=== PATIENT | male | born 1980 | race Caucasian/White ===

== ENCOUNTER 2019-07-15 17:25 | Observation (INO) ==
[2019-07-15] MEDS ORDERED: IOPAMIDOL 100 ML BOTTLE IV ONE (17:26)
[2019-07-15] MEDS ORDERED: HYDROmorphone 2 MG/ML VIAL IV PRN (17:41)
[2019-07-15] MEDS ORDERED: KETOROLAC 30 MG/ML VIAL IV ONE (17:41)
[2019-07-15] MEDS ORDERED: 0.9 % SODIUM CHLORIDE 2,000 ML IV ONE (17:41)
[2019-07-15] MEDS ORDERED: ONDANSETRON 4 MG/2 ML VIAL IV ONE (17:41)
--- NOTE | 2019-07-15 17:46 | Emergency Department Note ---
Abdominal Pain HPI - General Chief Complaint: Abdominal Pain Stated Complaint: lower abdominal pain Time Seen by Provider: 07/15/19 17:32 Source: patient Mode of arrival: ambulatory Limitations: no limitations - History of Present Illness HPI Narrative: 39-year-old male with periumbilical pain that started 2 and half hours prior to arrival. Does not seem to be related to food. He is able to urinate without difficulty. Last bowel movement was this morning and normal. He does have pain medicine at home oxycodone which she takes as needed for chronic back pain. However this pain is different. He has not taken any medicine for this yet. He does note a little bit of nausea but no fever shortness of breath or other concerning feature. He does not know what triggered this acute onset pain. 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 - Related Data Home Medications Medication Instructions Recorded Confirmed fish,flax,primrose,borag 1 cap PO QDAY cap 04/07/16 06/06/19 oils-om3,6,9 no5 400 mg-400 mg-200 mg capsule ascorbic acid (vitamin C) 2,000 mg PO QDAY 07/19/16 06/06/19 Previous Rx's Medication Instructions Recorded cholecalciferol (vitamin D3) 5,000 5,000 unit PO QDAY #90 cap 10/10/17 unit capsule zinc gluconate 100 mg tablet 100 mg PO QDAY #90 tab 10/10/17 pregabalin 75 mg capsule 75 mg PO BID #60 cap 10/11/17 Cyclobenzaprine [Flexeril] 10 mg PO TID PRN #30 tab 01/09/18 Etodolac [Lodine] 400 mg PO BID #20 tab 01/09/18 sulfamethoxazole 800 1 tab PO BID #14 tab 05/10/18 mg-trimethoprim 160 mg tablet atorvastatin 20 mg tablet 20 mg PO QDAY #90 tab 05/15/18 sumatriptan succinate 50 mg tablet 50 mg PO Q2H PRN #14 tab 05/21/18 escitalopram oxalate 20 mg tablet 20 mg PO QDAY #90 tab 10/15/18 fludrocortisone 0.1 mg tablet 0.1 mg PO BID #180 tab 11/13/18 itraconazole 100 mg capsule 200 mg PO BID #28 cap 06/04/19 oxycodone 5 mg tablet 5 mg PO .Q6-8HP PRN #112 tab 06/17/19 Allergies Allergy/AdvReac Type Severity Reaction Status Date / Time cephalexin Allergy Unknown Unknown Verified 06/06/19 14:56 Review of Systems All systems ED: reviewed and negative except as stated. Abdominal Pain PMH - Past Medical History Attestation: Yes: The following information was validated with the patient. [facility] Narrative: Family History (Last Reviewed 11/21/18 @ 16:47 by Marques Palacio DO) Mother Arthritis Skin cancer Grandmother Skin cancer Father Arthritis Hypertension, essential Heart disease Grandfather Heart attack Grandfather Heart attack Medical History (Last Reviewed 11/21/18 @ 16:47 by Marques aPlacio DO) History of fracture of radius (Chronic) History of acne (Chronic) Headache (Chronic) Major depressive disorder, single episode, moderate (Chronic) Analgesic use (Chronic) Thoracic disc disease (Chronic) Exposure to STD (Chronic) Low back pain (Chronic) Common migraine (Chronic) History of skin cancer (Chronic) Nevus (Chronic) Lentigo (Chronic) Tinea versicolor (Chronic) Tobacco use (Chronic) Fibromyalgia (Acute) Decreased range of motion (Chronic) History of head injury (Chronic) Chest pain (Chronic) Skin cancer (Chronic) Left knee pain (Chronic) Hip pain (Chronic) Neck pain (Chronic) Back pain (Chronic) Arthritis (Chronic) Chronic pain (Chronic) Fracture of right radius (Chronic) Acne (Chronic) Generalized headaches (Chronic) Major depressive disorder, single episode (Chronic) Current drug use (Chronic) Cervicalgia (Chronic) Thoracic disc disease (Chronic) MARTHA positive (Acute) Multiple joint pain (Chronic) Past Surgical History (Last Reviewed 11/21/18 @ 16:47 by Marques Palacio DO) No pertinent past surgical history (Chronic) Medical history: Reports: migraine, other (Chronic back pain) - Social History Smoking status: Former smoker Alcohol use: Reports: Unknown Drug use: Reports: none Physical Exam No acute distress. Normocephalic atraumatic. Conjunctive are clear sclerae white nonicteric. No nasal discharge or congestion. Oropharynx pink and moist. Posterior pharynx clear. Neck is supple without lymphadenopathy thyromegaly or carotid bruit. Heart is regular rate and rhythm no murmur appreciated. Lungs clear to auscultation bilaterally without wheezes rales rhonchi or respiratory distress. Abdomen is soft nontender nondistended except for the periumbilical area which isNo acute distress. Normocephalic atraumatic. Conjunctive are clear sclerae white nonicteric. No nasal discharge or congestion. Oropharynx pink and moist. Posterior pharynx clear. Neck is supple without lymphadenopathy thyromegaly or carotid bruit. Heart is regular rate and rhythm no murmur appreciated. Lungs clear to auscultation bilaterally without wheezes rales rhonchi or respiratory distress. Abdomen is soft nontender nondistended except for the periumbilical area which is markedly tender. No rebound tenderness peritoneal signs or guarding. No pedal edema. Alert oriented Limitations: no limitations Course Vital Signs Temperature 97.5 F 07/15/19 17:28 Pulse Rate 88 07/15/19 17:28 Respiratory Rate 18 07/15/19 17:28 Blood Pressure 131/88 07/15/19 17:28 Pulse Oximetry (%) 100 07/15/19 17:28 Temperature 97.5 F 07/15/19 17:28 Pulse Rate 78 07/15/19 19:31 Respiratory Rate 18 07/15/19 17:28 Blood Pressure 135/86 07/15/19 19:31 Pulse Oximetry (%) 99 07/15/19 19:31 Abdominal Pain - Lab Data Lab results reviewed: Yes I reviewed the patient's lab results. Result diagrams: 07/15/19 17:45 07/15/19 17:45 Lab Results 07/15/19 07/15/19 07/15/19 Range/Units 17:45 17:45 17:45 WBC 18.9 H (4.5-11.0) K/mcL RBC 5.09 (4.50-5.90) M/mcL Hgb 14.9 (13.5-16.5) g/dL Hct 42.9 (41.0-55.0) % POC Hct 44.0 (41.0-55.0) % MCV 84.3 (80.0-100.0) fL MCH 29.4 (26.0-34.0) pg MCHC 34.9 (31.0-36.0) g/dL RDW 12.1 (11.5-14.5) % Plt Count 342 (140-440) K/mcL MPV 7.9 (7.4-10.4) fL Gran % 75.5 (38.0-78.0) % Lymph % (Auto) 18.6 (15.5-49.0) % [place] % (Auto) 5.0 (1.0-12.0) % Eos % (Auto) 0.5 (0.0-7.0) % Baso % (Auto) 0.4 (0.0-2.0) % Gran # 14.3 H (1.8-8.0) K/mcL Lymph # (Auto) 3.5 (1.5-4.8) K/mcL [place] # (Auto) 0.9 (0.1-0.9) K/mcL Eos # (Auto) 0.1 (0.0-0.7) K/mcL Baso # (Auto) 0.1 (0.0-0.3) K/mcL VBG Lactic Acid 2.1 H (0.5-2.0) mmol/L POC Sodium 139 (133-145) mmol/L Sodium 136 (133-145) mmol/L POC Potassium 3.5 (3.3-5.1) mmol/L Potassium 3.5 (3.3-5.1) mmol/L POC Chloride 105 (96-108) mmol/L Chloride 100 (96-108) mmol/L Carbon Dioxide 22 (22-30) mmol/L POC Total CO2 23 (22-30) mmol/L Anion Gap 14.0 (8-16) POC BUN 12 (6-20) mg/dl BUN 12 (6-20) mg/dl Creatinine 0.9 (0.7-1.2) mg/dl POC Creatinine 0.8 (0.7-1.2) mg/dl GFR Calculation 109 Glucose 91 (70-105) mg/dL POC Glucose 92 (70-105) mg/dL Calcium 9.9 (8.6-10.4) mg/dl POC WB Ioniz Calcium 1.14 L (1.16-1.32) mmol/L Total Bilirubin 0.3 (0.0-1.0) mg/dL AST 20 (0-37) U/l ALT 27 (0-40) U/l Alkaline Phosphatase 52 (39-117) U/L Total Protein 7.7 (5.9-8.4) gm/dL Albumin 5.0 (3.2-5.2) gm/dL Globulin 2.7 (2.2-3.7) gm/dL Albumin/Globulin Ratio 1.9 (1.0-2.3) Lipase 27 (7-60) U/L Urine Color Urine Appearance Urine pH (5.0-9.0) Ur Specific [place] (1.000-1.035) Urine Protein (NEG) mg/dL Urine Glucose (UA) (NEG) mg/dL Urine Ketones (NEG) mg/dL Urine Occult Blood (<0.03) mg/dL Urine Nitrate (NEG) Urine Bilirubin (NEG) mg/dL Urine Urobilinogen (NEG) mg/dL Ur Leukocyte Esterase (NEG) /uL Urine RBC (0-1) /hpf Urine WBC (0-4) /hpf Ur Squamous Epith Cells (0-4) /hpf Urine Bacteria (0) /hpf Urine Mucus (0) /hpf Ur Culture Indicated? 07/15/19 Range/Units 17:46 WBC (4.5-11.0) K/mcL RBC (4.50-5.90) M/mcL Hgb (13.5-16.5) g/dL Hct (41.0-55.0) % POC Hct (41.0-55.0) % MCV (80.0-100.0) fL MCH (26.0-34.0) pg MCHC (31.0-36.0) g/dL RDW (11.5-14.5) % Plt Count (140-440) K/mcL MPV (7.4-10.4) fL Gran % (38.0-78.0) % Lymph % (Auto) (15.5-49.0) % [place] % (Auto) (1.0-12.0) % Eos % (Auto) (0.0-7.0) % Baso % (Auto) (0.0-2.0) % Gran # (1.8-8.0) K/mcL Lymph # (Auto) (1.5-4.8) K/mcL [place] # (Auto) (0.1-0.9) K/mcL Eos # (Auto) (0.0-0.7) K/mcL Baso # (Auto) (0.0-0.3) K/mcL VBG Lactic Acid (0.5-2.0) mmol/L POC Sodium (133-145) mmol/L Sodium (133-145) mmol/L POC Potassium (3.3-5.1) mmol/L Potassium (3.3-5.1) mmol/L POC Chloride (96-108) mmol/L Chloride (96-108) mmol/L Carbon Dioxide (22-30) mmol/L POC Total CO2 (22-30) mmol/L Anion Gap (8-16) POC BUN (6-20) mg/dl BUN (6-20) mg/dl Creatinine (0.7-1.2) mg/dl POC Creatinine (0.7-1.2) mg/dl GFR Calculation Glucose (70-105) mg/dL POC Glucose (70-105) mg/dL Calcium (8.6-10.4) mg/dl POC WB Ioniz Calcium (1.16-1.32) mmol/L Total Bilirubin (0.0-1.0) mg/dL AST (0-37) U/l ALT (0-40) U/l Alkaline Phosphatase (39-117) U/L Total Protein (5.9-8.4) gm/dL Albumin (3.2-5.2) gm/dL Globulin (2.2-3.7) gm/dL Albumin/Globulin Ratio (1.0-2.3) Lipase (7-60) U/L Urine Color Straw Urine Appearance Clear Urine pH 7.0 (5.0-9.0) Ur Specific [place] 1.016 (1.000-1.035) Urine Protein Neg (NEG) mg/dL Urine Glucose (UA) Negative (NEG) mg/dL Urine Ketones Neg (NEG) mg/dL Urine Occult Blood 0.03 A (<0.03) mg/dL Urine Nitrate Neg (NEG) Urine Bilirubin Neg (NEG) mg/dL Urine Urobilinogen Neg (NEG) mg/dL Ur Leukocyte Esterase Neg (NEG) /uL Urine RBC 2 H (0-1) /hpf Urine WBC < 1 (0-4) /hpf Ur Squamous Epith Cells 0 (0-4) /hpf Urine Bacteria 0 (0) /hpf Urine Mucus Few (0) /hpf Ur Culture Indicated? No - Radiology Data Radiology results reviewed: Yes I reviewed the patient's radiology results. CT scan of the abdomen pelvis with contrast shows acute appendicitis-measuring almost 12 mm Disposition Pt seen by MANAGER FLORAL/PA only: No Clinical Impression: Acute appendicitis Qualifiers: Acute appendicitis type: unspecified acute appendicitis type Qualified Code(s): K35.80 - Unspecified acute appendicitis Summary: Periumbilical abdominal pain the pancreatitis versus appendicitis versus other intra-abdominal issue. Work-up with laboratory CT scan. Dilaudid and Toradol for pain. Zofran for nausea Laboratory shows leukocytosis at 18.9. CT scan shows acute appendicitis. Started Zosyn. Discussed case with Dr. Chencho Reynaga, general surgeon. He agreed to accept the patient for further care and do possible surgery tomorrow at noon. Instructed me to go ahead admit the patient to him and so I wrote transition orders. He will see the patient in the morning. We will treat his pain with morphine, nausea with Zofran, give IV fluids and continue Zosyn every 6 hours. I discussed the findings with the patient. Took the time to answer his questions Disposition: Xfer As Inpt ([facility] Condition: Good Referrals: Marques Palacio DO [Primary Care Provider] - Chencho Reynaga MD [Physician] -
[2019-07-15 17:58] LABS: POC Blood Urea Nitrogen 12 mg/dl (6-20); POC CO2 23 mmol/L (22-30); POC Calcium, Ionized 1.14 mmol/L (1.16-1.32); POC Chloride 105 mmol/L (96-108); POC Creatinine 0.8 mg/dl (0.7-1.2); POC Glucose, Random 92 mg/dL (70-105); POC Potassium 3.5 mmol/L (3.3-5.1); POC Sodium 139 mmol/L (133-145)
[2019-07-15 18:31] LABS: Basophils # (Auto) 0.1 K/mcL (0.0-0.3); Basophils % (Auto) 0.4 % (0.0-2.0); Eosinophils # (Auto) 0.1 K/mcL (0.0-0.7); Eosinophils % (Auto) 0.5 % (0.0-7.0); Granulocytes % (Auto) 75.5 % (38.0-78.0); Hematocrit 42.9 % (41.0-55.0); Hemoglobin 14.9 g/dL (13.5-16.5); Lymphocytes # (Auto) 3.5 K/mcL (1.5-4.8); Lymphocytes % (Auto) 18.6 % (15.5-49.0); Mean Cell Volume 84.3 fL (80.0-100.0); Mean Corpuscular HGB Conc 34.9 g/dL (31.0-36.0); Mean Platelet Volume 7.9 fL (7.4-10.4); Monocytes # (Auto) 0.9 K/mcL (0.1-0.9); Platelet Count 342 K/mcL (140-440); RBC 5.09 M/mcL (4.50-5.90); Red Cell Distribution Width 12.1 % (11.5-14.5); WBC 18.9 K/mcL (4.5-11.0)
[2019-07-15 18:43] LABS: Appearance,Urine CLEAR; Bacteria,Urine 0 /hpf (0); Bilirubin,Urine NEG (NEG); Color,Urine STRAW; Culture Indicated,Urine NO; Glucose,Urine (UA) NEGATIVE (NEG); Ketones,Urine NEG (NEG); Leukocyte Esterase,Urine NEG /uL (NEG); Mucus,Urine FEW /hpf (0); Nitrate,Urine NEG (NEG); Protein,Urine NEG (NEG); Specific Gravity,Urine 1.016 (1.000-1.035); Urine Blood 0.03 mg/dL (<0.03); Urine RBC 2 /hpf (0-1); Urine Squamous Epithelial Cell 0 /hpf (0-4); Urine WBC < 1 /hpf (0-4); Urobilinogen,Urine NEG (NEG)
[2019-07-15 18:50] LABS: ALT/SGPT 27 U/l (0-40); AST/SGOT 20 U/l (0-37); Albumin/Globulin Ratio 1.9 (1.0-2.3); Alkaline Phosphatase 52 U/L (39-117); Bilirubin,Total 0.3 mg/dL (0.0-1.0); Blood Urea Nitrogen 12 mg/dl (6-20); Calcium 9.9 mg/dl (8.6-10.4); Carbon Dioxide 22 mmol/L (22-30); Chloride 100 mmol/L (96-108); Globulin 2.7 gm/dL (2.2-3.7); Glomerular Filtration Rate 109; Glucose 91 mg/dL (70-105)
[2019-07-15] MEDS ORDERED: ESOMEPRAZOLE 40 MG VIAL IV ONE (19:19)
--- NOTE | 2019-07-15 19:28 | Cat Scan Report ---
CLINICAL INFORMATION: Periumbilical pain COMPARISON: None. TECHNIQUE: Axial images were obtained through the abdomen and pelvis. Sagittally and coronally reformatted images. A mL Isovue 370 injected intravenously. Oral contrast material was given FINDINGS: Lung bases:Negative. No parenchymal infiltrate or mass. No pleural fluid. No pericardial fluid. There is mild cardiomegaly. Liver:Negative. No intrahepatic abnormality. Liver contour is smooth. There is no ascites Gallbladder, billary:No calcified gallstones. No gallbladder wall thickening. No dilated bile ducts. Common bile duct measures 4 mm Spleen:Negative. No splenomegaly. Normal enhancement of the splenic and portal veins Pancreas:Negative. No pancreatic mass. No peripancreatic abnormality Adrenal glands:Negative Kidneys, ureters, bladder:Negative kidneys. No solid or cystic mass. There is no hydronephrosis. No renal calculi. There is no hydroureter. No ureteral stone. No bladder calculi. Gastrointestinal:Negative colon. No diverticulosis or diverticulitis. No colonic mass. Small bowel is negative Appendix is abnormal. Appendix is distended and measures 11 mm in length. There is mild periappendiceal inflammatory change. There is a small amount of intraluminal gas of the appendix base. Findings are consistent with early simple appendicitis. No periappendiceal fluid collection. No periappendiceal abscess. There is no appendicolith. No evidence for ruptured appendicitis Vascular:No abdominal aortic aneurysm. No significant vascular calcification Lymphatic:No para-aortic retroperitoneal adenopathy. There is mild right lower quadrant adenopathy. Mesentery, peritoneum:No free intraperitoneal fluid. No intra-abdominal abscess. No pneumoperitoneum. Reproductive:Prostate is not enlarged Musculoskeletal:Normal lumbar spine. Sacrum and pelvis are negative. No anterior abdominal wall or inguinal hernia IMPRESSION: 1. Findings consistent with early simple appendicitis. No CT evidence for ruptured appendicitis 2. Mild right lower quadrant adenopathy The exam was performed using radiation dose optimization techniques including, but not limited to, automated exposure control, adjustment of the mA and/or kV according to patient size and use of iterative reconstruction technique. Interpreted and Authenticated by: Marques Perez 07/15/19
[2019-07-15] MEDS ORDERED: PIPERACILLIN SODIUM/TAZOBACTAM 3.375 GM in DEXTROSE 5% IN WATER 50 ML IV ONE (19:29)
[2019-07-15] MEDS ORDERED: ESOMEPRAZOLE 40 MG VIAL IV SCH (19:30)
[2019-07-15] MEDS ORDERED: ACETAMINOPHEN 325 MG TABLET PO PRN (19:35)
[2019-07-15] MEDS ORDERED: NALOXONE HCL 0.4 MG/ML VIAL IV PRN (19:35)
[2019-07-15] MEDS ORDERED: ONDANSETRON 4 MG/2 ML VIAL IV PRN (19:35)
[2019-07-15] MEDS: FLUDROCORTISONE 0.1 MG TABLET PO SCH (22:15)
[2019-07-15] MEDS: 0.9 % SODIUM CHLORIDE 1,000 ML IV SCH (22:16)
[2019-07-16] MEDS: PIPERACILLIN SODIUM/TAZOBACTAM 3.375 GM in DEXTROSE 5% IN WATER 50 ML IV SCH ×5 (02:24→23:38)
[2019-07-16] MEDS: 0.9 % SODIUM CHLORIDE 1,000 ML IV SCH ×4 (05:40→16:34)
[2019-07-16] MEDS: FLUDROCORTISONE 0.1 MG TABLET PO SCH ×2 (09:35→20:49)
--- NOTE | 2019-07-16 12:48 | General Surg History&Physical ---
History of Present Illness Patient information: Note initiated : 07/16/19 at 12:46 pm Service Date, if different from initiated Date: [] Patient: Royal rebecca Duong 39 y/o M admitted on 07/15/19 for lower abdominal pain. Chief Complaint: [abdominal pain] HPI: Mr. Duong is a 39 year old M admitted with history of severe abdominal pain. Patient had onset of severe abdominal pain about 2 PM yesterday. It increased in severity over the next few hours. He was seen in the emergency room last evening. He denies nausea vomiting. He was noted to have a lactic acid of 2.1 and white blood count of 18.9. CT of the abdomen and pelvis reveals inflamed appendix with mary--Appendiceal tissue edema And thickening of the appendiceal wall. His admitted with appendicitis. Review of Systems All systems PM: reviewed and no additional remarkable complaints except as stated (negative except as noted below) - Constitutional fatigue, headache(s) - Gastrointestinal abdominal pain, bloating - Musculoskeletal arthralgias, back pain, joint swelling, muscle cramps, myalgias, neck pain, stiffness - Neurological restless legs, syncope - Psychiatric depression Past History Past medical history: Ehler Danlos syndrome adrenal insufficiency Past surgical history: No operative procedures Past family history: Coronary artery disease. Hypertension. Inflammatory arthritis Past social history: Occasional tobacco use Denies alcohol use Denies drug use Medications and Allergies Home Medications Medication Instructions Recorded Confirmed Type fish,flax,primrose,borag 1 cap PO QDAY cap 04/07/16 07/16/19 History oils-om3,6,9 no5 400 mg-400 mg-200 mg capsule ascorbic acid (vitamin C) 2,000 mg PO QDAY 07/19/16 07/16/19 History cholecalciferol (vitamin D3) 5,000 5,000 unit PO QDAY #90 cap 10/10/17 07/16/19 Rx unit capsule escitalopram oxalate 20 mg tablet 20 mg PO QDAY #90 tab 10/15/18 07/16/19 Rx fludrocortisone 0.1 mg tablet 0.1 mg PO BID #180 tab 11/13/18 07/16/19 Rx oxycodone 5 mg tablet 5 mg PO .Q6-8HP PRN #112 tab 06/17/19 07/16/19 Rx Allergies Allergy/AdvReac Type Severity Reaction Status Date / Time cephalexin Allergy Unknown Unknown Verified 06/06/19 14:56 Exam Temp Pulse Resp BP Pulse Ox 98.1 F 56 L 18 120/75 95 07/16/19 08:00 07/16/19 08:00 07/16/19 08:00 07/16/19 08:00 07/16/19 08:00 - General physical appearance well developed, well nourished, moderate distress, moderate pain - Eyes PERRL, normal ocular movement - ENT normal pinna, normal nares, normal mucosa, no hearing loss, no congestion - Head Head exam IM: Present: atraumatic, normal inspection, normocephalic - Neck no masses, no bruits, trachea midline, no lymphadenopathy, no venous distension - Cardiovascular Cardiovascular exam IM: Present: normal rate and rhythm - Respiratory normal expansion, normal respiratory effort, clear to percussion, clear to auscultation - Abdomen Abdomen: Present: soft, tender (tenderness to palpation right lower quadrant with guarding), bowel sounds, distended (. Mild lower abdominal distention) Hernia: Present: none - Genitourinary Present: normal penis with no external lesions - Integumentary Present: no rash, no growths, no abnormal pigmentation - Neurologic Present: normal coordination, normal sensation - Musculoskeletal Present: normal gait, normal posture - Psychiatric Present: oriented to time, oriented to person, oriented to place, speech is normal, memory intact Assessment and Plan (1) Acute appendicitis Status: Acute Qualifiers: Acute appendicitis type: unspecified acute appendicitis type Qualified Code(s): K35.80 - Unspecified acute appendicitis (2) Maureen-Danlos syndrome Status: Acute (3) Major depressive disorder, single episode, moderate Status: Chronic
[2019-07-16] MEDS ORDERED: ACETAMINOPHEN 1,000 MG/100 ML BOTTLE IV ONE (12:51)
[2019-07-16] MEDS ORDERED: PHENYLEPHRINE 10 MG/ML VIAL IV ONE (13:35)
[2019-07-16] MEDS ORDERED: LIDOCAINE HCL/PF 100 MG/5 ML SYRINGE IV ONE (13:35)
[2019-07-16] MEDS ORDERED: SUGAMMADEX SODIUM 200 MG/2 ML VIAL IV ONE (13:35)
[2019-07-16] MEDS ORDERED: KETAMINE 100 MG/ML ML IV ONE (13:35)
[2019-07-16] MEDS ORDERED: MIDAZOLAM 2 MG/2 ML VIAL IV ONE (13:35)
[2019-07-16] MEDS ORDERED: ONDANSETRON 4 MG/2 ML VIAL IV ONE (13:35)
[2019-07-16] MEDS ORDERED: DEXAMETHASONE 10 MG/ML VIAL IV ONE (13:35)
[2019-07-16] MEDS ORDERED: ROCURONIUM 10 MG/ML ML IV ONE (13:35)
[2019-07-16] MEDS ORDERED: fentaNYL 100 MCG/2 ML VIAL IV ONE (13:35)
[2019-07-16] MEDS ORDERED: GLYCOPYRROLATE 0.2 MG/ML VIAL IV ONE (13:35)
[2019-07-16] MEDS ORDERED: PROPOFOL 200 MG/20 ML VIAL IV ONE (13:35)
[2019-07-16] MEDS ORDERED: MEPERIDINE 25 MG/ML SYRINGE IV PRN (14:09)
[2019-07-16] MEDS ORDERED: KETOROLAC 30 MG/ML VIAL IV PRN (14:09)
[2019-07-16] MEDS ORDERED: ONDANSETRON 4 MG/2 ML VIAL IV PRN ×2 (14:09→15:49)
[2019-07-16] MEDS ORDERED: IPRATROPIUM/ALBUTEROL 3 ML AMPUL.NEB NEB PRN (14:09)
[2019-07-16] MEDS ORDERED: METHOCARBAMOL 1,000 MG/10 ML VIAL IV PRN (14:09)
[2019-07-16] MEDS ORDERED: LACTATED RINGERS 1,000 ML IV SCH (14:15)
--- NOTE | 2019-07-16 14:20 | Brief Operative Note ---
Date of procedure: 07/16/19 Pre-op diagnosis: acute appendicitis Post-op diagnosis: other (acute appendicitis) Procedure: LAPAROSCOPIC APPENDECTOMY Grafts/Implants: No Anesthesia: GETA Findings: ACUTE SUPPURATIVE APPENDICITIS Complications: none Surgeon: Zita Reynaga Specimens Removed/Pathology: other (APPENDIX) Condition: stable Disposition: PACU
[2019-07-16] MEDS: fentaNYL 100 MCG/2 ML VIAL IV PRN ×4 (14:51→15:04)
[2019-07-16] MEDS: HYDROmorphone 2 MG/ML VIAL IV PRN ×2 (15:12→15:31)
[2019-07-16] MEDS ORDERED: HYDROmorphone 2 MG/ML VIAL IV PRN (15:49)
[2019-07-16] MEDS ORDERED: PROMETHAZINE 25 MG/ML VIAL IV PRN (15:49)
[2019-07-16] MEDS ORDERED: ACETAMINOPHEN 325 MG TABLET PO PRN (15:49)
[2019-07-16] MEDS ORDERED: 0.9 % SODIUM CHLORIDE 1,000 ML IV SCH (15:49)
[2019-07-16] MEDS: oxyCODONE HCL 5 MG TABLET PO PRN ×2 (16:01→20:48)
[2019-07-16] MEDS ORDERED: FLUDROCORTISONE 0.1 MG TABLET PO SCH (21:00)
[2019-07-17 05:44] LABS: Basophils # (Auto) 0 K/mcL (0.0-0.3); Basophils % (Auto) 0.1 % (0.0-2.0); Eosinophils # (Auto) 0 K/mcL (0.0-0.7); Eosinophils % (Auto) 0 % (0.0-7.0); Granulocytes % (Auto) 86.4 % (38.0-78.0); Hematocrit 41.2 % (41.0-55.0); Hemoglobin 13.7 g/dL (13.5-16.5); Lymphocytes # (Auto) 1.4 K/mcL (1.5-4.8); Lymphocytes % (Auto) 9.9 % (15.5-49.0); Mean Cell Volume 87.6 fL (80.0-100.0); Mean Corpuscular HGB Conc 33.2 g/dL (31.0-36.0); Mean Platelet Volume 8.2 fL (7.4-10.4); Monocytes # (Auto) 0.5 K/mcL (0.1-0.9); Monocytes % (Auto) 3.6 % (1.0-12.0); Platelet Count 320 K/mcL (140-440); Red Cell Distribution Width 12.2 % (11.5-14.5); WBC 14.3 K/mcL (4.5-11.0)
[2019-07-17] MEDS: PIPERACILLIN SODIUM/TAZOBACTAM 3.375 GM in DEXTROSE 5% IN WATER 50 ML IV SCH ×2 (06:03→11:15)
[2019-07-17 06:07] LABS: ALT/SGPT 21 U/l (0-40); AST/SGOT 15 U/l (0-37); Albumin 4.1 gm/dL (3.2-5.2); Albumin/Globulin Ratio 1.5 (1.0-2.3); Alkaline Phosphatase 49 U/L (39-117); Bilirubin,Direct < 0.2 mg/dL (0.0-0.3); Bilirubin,Total 0.3 mg/dL (0.0-1.0); Blood Urea Nitrogen 7 mg/dl (6-20); Calcium 9.4 mg/dl (8.6-10.4); Carbon Dioxide 23 mmol/L (22-30); Chloride 103 mmol/L (96-108); Globulin 2.7 gm/dL (2.2-3.7); Glomerular Filtration Rate 114; Glucose 125 mg/dL (70-105); Lactate Dehydrogenase 147 U/L (94-250); Phosphorous 3.5 mg/dL (2.7-4.5); Triglycerides 221 mg/dl (<150); Uric Acid 3.7 mg/dL (2.5-8.0)
[2019-07-17] MEDS: oxyCODONE HCL 5 MG TABLET PO PRN ×2 (08:25→13:02)
[2019-07-17] MEDS: FLUDROCORTISONE 0.1 MG TABLET PO SCH (08:25)
--- NOTE | 2019-07-17 13:15 | Surgical Pathology Report ---
HISTOLOGY SPECIMEN MICROSCOPIC DIAGNOSIS APPENDIX, APPENDECTOMY: -- ACUTE APPENDICITIS WITH SEROSITIS. (EBD:melvi) PROCEDURAL IMPRESSION Acute appendicitis. GROSS DESCRIPTION Received in formalin designated appendix, is a prather-bernstein appendix that measures 7.8 cm in length by up to 0.8 cm in diameter. The margin is stapled and it is inked black. Sectioning reveals pink-bernstein tissue with red viscous fluid. Phlebotomy Supervisor sections submitted in one cassette. (SCB:adj) Electronically Signed by: Clari Stallings M.D.
--- NOTE | 2019-07-17 13:28 | Discharge Summary ---
Providers - Providers Patient information: Note initiated : 07/17/19 at 1:26 pm Service Date, if different from initiated Date: [] Patient: Royal rebecca Duong 39 y/o M admitted on 07/15/19 for lower abdominal pain. Chief Complaint: [] Date of admission: 07/15/19 Discharge date: 07/17/19 Attending physician: Zita Reynaga Hospitalization Hospital Course: 39-year-old male admitted on 15 June with right lower quadrant pain. Evaluation revealed white count of 18,[address] scan show findings of acute appendicitis. He underwent laparoscopic appendectomy on 16 June. He was found to have acute suppurative appendicitis without abscess. He has done well and has minimal discomfort. His white blood count is down to 14.3. He is tolerating a soft diet and denies nausea and vomiting. Patient is stable for discharge. Discharge diagnosis: acute appendicitis Secondary discharge diagnosis: Adrenal insufficiency Reason for admission: abdominal pain nausea and vomiting Procedures: Laparoscopic appendectomy Pertinent studies/significant findings: CT of abdomen and pelvis with contrast Complications: None Exam Temp Pulse Resp BP Pulse Ox 97.4 F 76 16 109/64 97 07/17/19 11:44 07/17/19 11:44 07/17/19 11:44 07/17/19 11:44 07/17/19 11:44 - General physical appearance well developed, well nourished, no distress - Eyes PERRL, normal ocular movement - ENT normal pinna, normal nares, normal mucosa, no hearing loss, no congestion - Head Head exam IM: Present: atraumatic, normocephalic - Neck no masses, no bruits, trachea midline, no lymphadenopathy, no venous distension - Cardiovascular Cardiovascular exam IM: Present: normal rate and rhythm - Respiratory normal expansion, normal respiratory effort, clear to percussion, clear to auscultation - Abdomen Abdomen: Present: soft, tender (mild tenderness around port sites; good active bowel sounds; mild distention), bowel sounds Hernia: Present: none - Genitourinary Present: normal penis with no external lesions - Integumentary Present: no rash, no growths, no abnormal pigmentation - Neurologic Present: normal coordination, normal sensation - Musculoskeletal Present: normal gait, normal posture - Psychiatric Present: oriented to time, oriented to person, oriented to place, speech is normal, memory intact Discharge Plan - Patient/Caregiver Discharge Instructions Activity: increase activity as tolerated Diet: Regular Diet - Follow up Plan Follow up with: Marques Palacio DO [Primary Care Provider] - Zita Reynaga MD [Physician] - 08/01/19 (Follow-up in the office in 2 weeks for staple removal and evaluation) Disposition: Home, Self-Care Prognosis: Good Rehab Potential: Good I certify that the patient requires SNF services.: No Overall status at discharge: patient is progressing back to baseline Pending Studies Resuscitation Status Full Code Diet Full Liquid Diet Start MonJul 16 1550 Acetaminophen (Tylenol) 650 mg PO Q6HP PRN PRN Reason: PAIN/FEVER > 101 Last Admin: 07/16/19 20:51 Dose: 650 mg Documented by: ERICA Fludrocortisone Acetate (Florinef) 0.1 mg PO BID LALO Last Admin: 07/17/19 08:25 Dose: 0.1 mg Documented by: Admin: 07/16/19 20:49 Dose: Not Given Documented by: ERICA Piperacillin Sod/Tazobactam (Sod 3.375 gm/ Dextrose) 50 mls @ 100 mls/hr IV Q6H LALO; Protocol Last Admin: 07/17/19 11:15 Dose: 100 mls/hr Documented by: Infusion: 07/17/19 07:05 Dose: 100 mls/hr Documented by: Admin: 07/17/19 06:03 Dose: 100 mls/hr Documented by: Infusion: 07/17/19 00:08 Dose: 100 mls/hr Documented by: Admin: 07/16/19 23:38 Dose: 100 mls/hr Documented by: Infusion: 07/16/19 18:05 Dose: 100 mls/hr Documented by: Admin: 07/16/19 17:35 Dose: 100 mls/hr Documented by: SHARITA Oxycodone HCl (Roxicodone) 10 mg PO Q4HP PRN; Protocol PRN Reason: Per Pain Protocol Last Admin: 07/17/19 13:02 Dose: 10 mg Documented by: Admin: 07/17/19 08:25 Dose: 10 mg Documented by: Admin: 07/16/19 20:48 Dose: 10 mg Documented by: Admin: 07/16/19 16:01 Dose: 10 mg Documented by: SHARITA Shift Summary 07/17/19 05:15 Shift Summary by Susana Singh Pt had lap appy yesterday. Has had no nausea, minimal abd pain - most of the meds given have been for other chronic pain issues. Left lap site bled quite a bit, dressing was changed. Lower lap site had dried blood that pt wanted changed as well. Has been up ad alethea in room, voiding well. will d/c today. Initialized on 07/17/19 05:15 - END OF NOTE
--- NOTE | 2019-07-23 08:21 | Operative Note ---
DATE OF OPERATION: 07/16/2019 PREOPERATIVE DIAGNOSIS: Acute appendicitis. POSTOPERATIVE DIAGNOSIS: Acute appendicitis. PROCEDURE: Laparoscopic appendectomy. SURGEON: Zita Reynaga M.D. FINDINGS: Acute suppurative appendicitis. DESCRIPTION OF PROCEDURE: Under general anesthesia, the patient's abdomen was prepped and draped in a sterile field. A supraumbilical incision was made and Veress needle was inserted. Abdomen was insufflated with 2.5 liters of CO2. A 12 mm port was placed and laparoscope was placed. There was an acutely inflamed appendix lying in the right gutter in the pelvis. It was grasped. The base of the appendix was dissected and a window was made in the mesoappendix. The base of the appendix was transected using Endo ARGENIS stapler. The mesoappendix was transected using two fires of the Endo ARGENIS stapler. The appendix was placed in an Endopouch and retrieved. Irrigation was carried out. CO2 was allowed to escape from the abdomen. No drain was needed. The fascia at the umbilicus was closed with interrupted 0 Vicryl. Skin incisions were closed with jes. The patient tolerated the procedure well. He was awakened, transferred to a bed, and taken to the postanesthetic care unit in stable, satisfactory condition. LCS:cassidy Job ID: [id number] Doc ID: [id number] Zita Reynaga M.D.
== END 2019-07-17 14:10 | disposition home or self-care (01) ==
LOC: MEDSUR 17:25 → ED 17:25 → MEDSUR 20:23
PROVIDERS: ADMIT Family Medicine Adult Medicine; ATTEND Family Medicine Adult Medicine